=== PATIENT | male | born 1980 | race Two or more races ===

== ENCOUNTER 2022-01-03 11:44 | Emergency (ER) | payer OTHER, SELFPAY ==
[2022-01-03] VITALS (8 sets, daily range): BP systolic 106–130; BP diastolic 67–87; PULSE 68–96; RESP 16–28; TEMP 36.8; O2SAT 96–99
--- NOTE | ~2022-01-03 | CT_ITS ---
EXAMINATION: CT abdomen pelvis w con DATE: 01/03/2022 14:41 INDICATION: Abdominal pain. TECHNIQUE: Computed tomography (CT) of the abdomen and pelvis was performed with 100 mL Omnipaque 350 intravenous contrast. Automated exposure control and iterative reconstruction technique were employe d. The dose-length product was 1532.84 mGy-cm. COMPARISON: None. FINDINGS: The visualized portions of the lung bases demonstrate mild atelectasis. No pleural effusion . The heart size is normal. No pericardial effusion. There is diffuse hepatic steatosis. There is a 2 .2 cm hyperenhancing mass in right hepatic lobe. There is a 7 mm cyst in the liver. The gallbladder, spleen, pancreas, adrenal glands, and kidneys are normal. There is diverticulosis of the colon withou t evidence of diverticulitis. There are no dilated loops of bowel. The appendix is normal. There are no pathologically enlarged lymph nodes. There is no free intraperitoneal fluid. There are bilateral i nguinal hernias containing fat. There is mild thoracolumbar spondylosis. There are hemangiomas in T11 vertebral body. IMPRESSION: 1. 2.2 cm hyperenhancing liver mass. In the absence of known malignancy or chronic liver disease, thi s finding is most likely focal sparing of steatosis, focal nodular hyperplasia, or a hemangioma. 2. Bilateral inguinal hernias containing fat. Reviewed, dictated and finalized at location A. IMPRESSION: 1. 2.2 cm hyperenhancing liver mass. In the absence of known malignancy or synchronizer jennifer liver disease, this finding is most likely focal sparing of steatosis, foca l nodular hyperplasia, or a hemangioma. 2. Bilateral inguinal hernias containing fat.
[2022-01-03 12:31] LABS: Basophils Percent Auto 0.3 % (0.2-1.2); Eosinophils Absolute Auto 0.4 K/mm3 (0-0.3); Eosinophils Percent Auto 6.3 % (0-4.4); Hematocrit 46.5 % (42.0-52.0); Hemoglobin 15.3 g/dL (14.0-18.0); Immature Granulocyte Absolute 0.02 K/mm3 (0.00-0.031); Immature Granulocyte Percent A 0.3 % (0-0.5); Lymphocytes Percent Auto 19.1 % (18.3-44.2); Mean Corpuscular HGB Conc 32.9 g/dl (32-36); Mean Corpuscular Hemoglobin 27.8 pg (26-34); Mean Corpuscular Volume 84.5 fl (80-100); Mean Platelet Volume 10.1 fl (7.4-10.4); Monocytes Absolute Auto 0.4 K/mm3 (0.1-0.6); Monocytes Percent Auto 6.5 % (2.6-8.5); Neutrophils Absolute Auto 4.6 K/mm3 (1.3-6.7); Neutrophils Percent Auto 67.5 % (45.5-73.1); Platelet Count Result 161 k/mm3 (150-375); Red Cell Distribution Width 13.5 % (11.5-14.5); White Blood Count 6.8 K/mm3 (4.5-10.0)
[2022-01-03 12:44] LABS: Alanine Aminotransferase 33 U/L (6-50); Albumin Level 4.2 g/dL (3.5-5.1); Alkaline Phosphatase 65 U/L (38-126); Anion Gap 11 mmol/L (8-16); Aspartate Amino Transferase 27 U/L (17-59); Bilirubin,Total 0.7 mg/dL (0.2-1.3); Blood Urea Nitrogen 20 mg/dL (9-20); Carbon Dioxide 26 mmol/L (22-30); Chloride 103 mmol/L (98-107); Estimated Glomerular Filt Rate > 60; Glucose 95 mg/dL (65-110); Lipase 31 U/L (23-300); Potassium 3.7 mmol/L (3.4-5.0); Sodium 140 mmol/L (137-145)
--- NOTE | 2022-01-03 12:57 | ED.ABDPAIN ---
HPI - Abdominal Pain General Chief Complaint: Abdominal Pain Stated Complaint: abd pain Time Seen by Provider: 01/03/22 11:48 Source: RN notes reviewed History of Present Illness HPI narrative: Patient presents emergency department from home for abdominal pain. States that the pain began approximately 2 days ago. The pain is located left lower quadrant does not radiate described as sharp and stabbing states has been associated with diarrhea. Patient also states that the pain is worse when he rotates the body to the left. Denies any fevers or chills nausea vomiting or any other symptoms of concern states he took ibuprofen and Tylenol last night but not take anything today Related Data Allergies Allergy/AdvReac Type Severity Reaction Status Date / Time No Known Allergies Allergy Unverified 02/18/15 22:03 Review of Systems Review of Systems: Gen.: Denies fevers or chills ENT: Denies congestion Respiratory: Denies shortness of breath or cough CV: Denies chest pain or palpitations GI: See HPI denies burning, urgency, frequency or hematuria Musculoskeletal: Denies back pain or muscle pain Neuro: Denies numbness, tingling, weakness or focal weakness Skin: Denies rash Except as documented, all other systems reviewed and negative [facility] Past Medical History Medical History (Updated 01/03/22 @ 15:17 by Ke Parrish DO) Patient denies significant medical history Social History Social History (Updated 01/03/22 @ 12:58 by Ke Parrish DO) Smoking status: Never smoker Exam Narrative: APPEARANCE: No acute distress, nontoxic, resting in bed HEENT: Normocephalic, atraumatic, OMM RESPIRATORY: No respiratory distress, clear to auscultation bilaterally with no rhonchi wheezing or rales CARDIOVASCULAR: RRR s murmur ABDOMINAL: Soft nondistended tender palpation left lower quadrant no tenderness left upper quadrant, right upper quadrant right lower quadrant no rebound or guarding pain increased with rotation of the torso to the left MUSCULOSKELETAl: Moves all extremities. No clubbing, cyanosis or edema. NEURO: Awake and alert. Following commands, speech normal, no focal deficits SKIN:: Warm, dry. Normal Color PSYCHIATRIC: Normal affect/mood Course Course Emergency Course: Patient states that they are feeling much better at this time. States abdominal pain has r improved. Repeat abdominal exam shows the patient's abdomen to be soft with no surgical abdomen present discussed with patient results of workup and diagnosis. Discussed need for follow-up with primary care physician, reasons to return to the emergency department in proper use of medication. Patient understands and agrees to current treatment plan Vital Signs Vital signs: Vital Signs Temperature 98.2 F 01/03/22 12:10 Pulse Rate 86 01/03/22 12:10 Respiratory Rate 16 01/03/22 12:10 Blood Pressure 130/86 01/03/22 12:10 Pulse Oximetry 98 01/03/22 12:10 Oxygen Delivery Room Air 01/03/22 12:10 Temperature 98.2 F 01/03/22 12:10 Pulse Rate 86 01/03/22 12:10 Respiratory Rate 16 01/03/22 12:10 Blood Pressure 130/86 01/03/22 12:10 Pulse Oximetry 98 01/03/22 12:10 Oxygen Delivery Room Air 01/03/22 12:10 MDM - Abdominal Pain MDM Narrative Medical decision making narrative: Patient's abdomen is soft without significant pain or signs of surgical abdomen on serial exams. Lab and x-ray evaluations are reviewed and patient is felt to be a reasonable candidate for outpatient management. Patient was instructed as to limitations of x-ray and laboratory evaluation and encouraged to return to ED or primary physician for repeat exam in 12 hours if continued or worsening pain Lab Data Result diagrams: 01/03/22 12:18 01/03/22 12:18 Labs: Lab Results 01/03/22 01/03/22 01/03/22 Range/Units 12:18 12:18 13:01 WBC 6.8 (4.5-10.0) K/mm3 RBC 5.50 (4.6-6.20) M/mm3 Hgb 15.3 (14.0-18.0) g/dL
[2022-01-03 13:17] LABS: Appearance Urine Slightly Cloudy (Clear); Bilirubin Urine 1+ (Negative); Blood Urine 2+ (Negative); Color Urine Yellow (Yellow); Glucose Urine UA Negative (Negative); Ketones Urine Trace mg/dL (Negative); Leukocyte Esterase Ur Negative LEU/UL (Negative); Nitrate Urine Negative (Negative); Protein Urine 2+ mg/dL (Negative); Specific Grav Ur >= 1.030 (1.001-1.035)
[2022-01-03] MEDS: KETOROLAC 30 MG/ML VIAL (*BKC) IV PUSH (13:20)
[2022-01-03] MEDS: SODIUM CHLORIDE 0.9% IV 1,000 ML 999 ML IV CONT (13:20)
[2022-01-03 13:34] LABS: Mucus Urine Rare /lpf; RBC Urine 51-75 /hpf (0-2); Squamous Epithelial Cell Urine Rare /hpf (Few)
[2022-01-03 13:54] LABS: Add Urine Microscopic? YES
== END 2022-01-03 15:30 | disposition home or self-care (01) ==
PROVIDERS: Emergency Provider Emergency Medicine; PCP Emergency Medicine
DX: R10.32 Left lower quadrant pain (principal)
CPT/HCPCS: 36415; 74177; 80053; 81001; 83690; 85025; 87086; 96361; 96374; 99284; J1885; J7030; Q9967

== ENCOUNTER → 2024-07-01 14:36 | Outpatient (CLI) | payer OTHER, SELFPAY ==
--- NOTE | ~2024-07-01 | XR_ITS ---
EXAMINATION:XR cervical spine 4-5V, XR lumbar spine 2-3V, XR thoracic spine 3V DATE: 07/01/2024 15:29 INDICATION: Chronic diffuse neck and back pain TECHNIQUE: 1. AP, lateral, lateral swimmers and odontoid views of the cervical spine are provided. 2. AP, lateral and lateral swimmer's views of the thoracic spine were obtained. 3. AP, lateral and lateral lumbosacral views of the lumbar spine were obtained. COMPARISON: Cervical spine radiographs dated 02/18/[address] abdomen and pelvis dated 01/03/22 FINDINGS: Cervical spine: Alignment is normal. Odontoid is intact. Normal atlantoaxial interval. Vertebral body heights are no rmal. Disc spaces are normal. Mild cervical uncovertebral and facet osteoarthritis in the mid to lowe r cervical spine. Prevertebral soft tissues are normal. Thoracic spine: 6 degrees upper lumbar levocurvature. Sagittal alignment is normal. Unchanged mild likely physiologic anterior wedging at T11 and T12. More cephalad thoracic vertebral body heights are normal. Mild disc height loss with small endplate osteophytes at multiple levels in the mid to lower thoracic spine. V isualized portions of the lungs are clear with no pleural effusion or pneumothorax. Heart size is nor mal. Lumbar spine: Alignment is normal. Additional unchanged mild likely pathologic intra-articular wedging at L1. Remai izabela lumbar vertebral body heights are normal. Mild disc height loss and small endplate osteophytes a t L1-L2. Mild lumbar disc heights are normal. The lumbosacral joints are normal. IMPRESSION: 1. Minimal cervical and mild thoracic and lumbar spondylosis. 2. Chronic mild likely physiologic anterior wedging at T11-L1, unchanged since CT dated 01/03/2022 Reviewed, dictated and finalized at location B. IMPRESSION: 1. Minimal cervical and mild thoracic and lumbar spondylosis. 2. Chronic mild likely physiologic anterior wedging at T11-L1, unchanged since CT dated 01/03/2022 IMPRESSION: 1. Minimal cervical and mild thoracic and lumbar spondylosis. 2. Chronic mild likely physiologic anterior wedging at T11-L1, unchanged since CT dated 01/03/2022
--- NOTE | ~2024-07-01 | XR_ITS ---
EXAMINATION: XR shoulder LT min 2V, XR shoulder RT min 2V DATE: 07/01/2024 15:30 INDICATION: Chronic bilateral shoulder pain TECHNIQUE: 1. AP and transscapular Y views of the right shoulder were obtained. 2. AP and transscapular Y views of the left shoulder were obtained. COMPARISON: None FINDINGS: Right shoulder: Normal alignment. The acromion undersurface is curved in morphology (type II). No fracture. Mild acro mioclavicular osteoarthritis with small inferiorly directed osteophytes. Soft tissues are unremarkabl e. Visualized portion of the lungs are clear. Left shoulder: Normal alignment. The acromion undersurface is curved in morphology (type II). No fracture. Mild acro mioclavicular osteoarthritis. Soft tissues are unremarkable. Visualized portion of the lungs are frank r. IMPRESSION: Mild bilateral acromioclavicular osteoarthritis. Reviewed, dictated and finalized at location B. IMPRESSION: Mild bilateral acromioclavicular osteoarthritis.
== END ==
LOC: EXPCRAD 14:39
PROVIDERS: PCP Emergency Medicine; Visit Provider Emergency Medicine
DX: M47.812 Spondylosis without myelopathy or radiculopathy, cervical region (principal); M47.814 Spondylosis without myelopathy or radiculopathy, thoracic region; M19.012 Primary osteoarthritis, left shoulder; M19.011 Primary osteoarthritis, right shoulder
CPT/HCPCS: 72050; 72072; 72100; 73030